=== PATIENT | male | born 1990 | race Caucasian/White ===

== ENCOUNTER 2019-03-06 15:08 | Inpatient (IN) | payer OTHER | END 2019-03-08 14:29 | disposition home or self-care (01) | LOC: J8W 03-07 04:17 → JER 15:08 → JERBED 18:35 ==

== ENCOUNTER 2019-09-04 10:58 | Emergency (ER) | payer OTHER ==
[2019-09-04 11:06] VITALS: BP 130/74; PULSE 115; TEMP 98.7; BMI 35.9
--- NOTE | 2019-09-04 11:38 | PDOC ---
History of Present Illness - General Chief Complaint: Cold Symptoms Stated Complaint: FLU LIKE SYMPTOMS/BODY ACHE Time Seen by Provider: 09/04/19 11:38 History Source: Patient - History of Present Illness Initial Comments: 09/04/19 13:53 Chief complaint: Fever Patient is 29-year-old male history of NIDDM, with 3 days of body ache, sore throat. Patient denies any chest pain or shortness of breath. Patient took ibuprofen this morning, possibly 1 [id number] tablet. Patient does not appear acutely ill GENERAL/CONSTITUTIONAL: + fever, weakness. dizziness HEAD, EYES, EARS, NOSE AND THROAT: No change in vision. No ear pain or discharge. No sore throat. CARDIOVASCULAR: No chest pain RESPIRATORY: No shortness of breath or cough GASTROINTESTINAL: No pain, nausea, vomiting, diarrhea or constipation GENITOURINARY: No dysuria MUSCULOSKELETAL: No neck or back pain SKIN: No rash NEUROLOGIC: No headache, vertigo, loss of consciousness, or loss of sensation. GENERAL: The patient is awake, alert, and fully oriented, in no acute distress. HEAD: Normal with no signs of trauma. EYES: Pupils equal, round and reactive to light, sclera anicteric, conjunctiva clear. ENT: pharynx: +erythema, no exudate, uvula midline NECK: supple CHEST: clear, nontender, rr ABD: soft, nontender BACK: no tenderness or signs of injury EXTREMITIES: Normal range of motion, no edema. NEUROLOGICAL: Normal speech, normal gait. SKIN: Warm, Dry Past History - Past Medical History Allergies/Adverse Reactions: Allergies Allergy/AdvReac Type Severity Reaction Status Date / Time No Known Allergies Allergy Verified 09/04/19 11:03 Home Medications: Ambulatory Orders Insulin Detemir [Levemir Flextouch] 20 unit SQ DAILY #1 insuln.pen 03/08/19 Insulin Lispro [Humalog Kwikpen U-100] See Protocol SQ TID #1 insuln.pen metFORMIN HCL [Glucophage -] 500 mg PO BID@0700,1630 #60 tablet 03/08/19 Amoxicillin 875 mg PO BID #20 tablet 09/04/19 COPD: No Diabetes: Yes - Immunization History Immunization Up to Date: Yes - Psycho Social/Smoking Cessation Hx Smoking History: Never smoked Have you smoked in the past 12 months: No Hx Alcohol Use: No Drug/Substance Use Hx: No *Physical Exam - Vital Signs Last Vital Signs Temp Pulse Resp BP Pulse Ox 98.7 F 115 H 18 130/74 97 09/04/19 11:04 09/04/19 11:04 09/04/19 11:04 09/04/19 11:04 09/04/19 11:04 Medical Decision Making - Medical Decision Making 09/04/19 13:54 29-year-old male with subjective fevers, body aches, sore throat. Patient is diabetic. Will give fingerstick since patient does not monitor his sugars and he was in the hospital in January with a sugar, first time of 700s. Patient does not look acutely ill. Patient will get flu swab, if negative will treat for strep. Sugar is in the 200s, flu is negative, will treat for strep, pharyngitis. Discussed issues, findings, results, applicable medications and treatments and follow-up. All these were understood and all questions were answered Discharge - Discharge Information Problems reviewed: Yes Clinical Impression/Diagnosis: Pharyngitis Qualifiers: Pharyngitis/tonsillitis etiology: unspecified etiology Qualified Code(s): J02.9 - Acute pharyngitis, unspecified Condition: Stable Disposition: HOME - Admission No - Additional Discharge Information Prescriptions: Amoxicillin 875 mg PO BID #20 tablet - Follow up/Referral - Patient Discharge Instructions Additional Instructions: Drink 2-3 L of water daily Take amoxicillin every 12 hours for 10 days do not stop it early even if you feel better. Monitor blood sugars and if they start getting much higher, make sure you discuss with your doctor or if you feel very sick return to the ER Take Tylenol 650 mg every 4 hours or Motrin 600 mg every 6 hours for fever and pain Return to the nearest ER if short of breath, unable to swallow or feeling sicker Followup with your doctor in one to 2 days Beber 2-3 L de agua diariamente [place] amoxicilina cada 12 horas theodore 10 huang, no lo suspenda temprano, incluso si se siente mejor. Controle los niveles de azcar en la francisco javier y si comienzan a aumentar mucho, asegrese de hablar con mejia mdico o si se siente muy enfermo, regrese a la radha de emergencias. [place] Tylenol 650 mg cada 4 horas o Motrin 600 mg cada 6 horas para la fiebre y el dolor. Regrese a la radha de emergencias ms cercana si tiene dificultad para respirar, no puede tragar o se siente ms enfermo Seguimiento con mejia mdico en zonia o dos huang. - Post Discharge Activity
[2019-09-04] MEDS ORDERED: IBUPROFEN 600 MG TABLET (FP) PO ONE (11:39)
[2019-09-04] MEDS ORDERED: ACETAMINOPHEN 325 MG TABLET (FP) PO ONE (12:17)
[2019-09-04] MEDS ORDERED: ACETAMINOPHEN 325 MG TABLET (FP) ONE (12:29)
== END 2019-09-04 14:03 | disposition home or self-care (01) ==
LOC: JERFT 10:58
DX: J02.9 Acute pharyngitis, unspecified (principal); E10.9 Type 1 diabetes mellitus without complications; Z79.4 Long term (current) use of insulin
CPT/HCPCS: 82962; 87804; 99283-25

== ENCOUNTER 2019-10-16 21:48 | Emergency (ER) | payer SELFPAY ==
--- NOTE | 2019-10-16 22:03 | PDOC ---
Rapid Medical Evaluation Chief Complaint: Blood Sugar Problem Time Seen by Provider: 10/16/19 22:03 Medical Evaluation: Allergies Allergy/AdvReac Type Severity Reaction Status Date / Time No Known Allergies Allergy Verified 10/16/19 22:01 Vital Signs Temp Pulse Resp BP Pulse Ox 98.5 F 112 H 18 154/99 99 10/16/19 21:57 10/16/19 21:57 10/16/19 21:57 10/16/19 21:57 10/16/19 21:57 10/16/19 22:11 29-year-old male with IDDM, ran out of insulin several months ago and taking Metformin only presenting with fever, cough, SOB, loss of sense of smell. States blood sugars have been in 500s. Pertinent physical exam findings: No resp distress, SpO2 100%, clear lungs No abd tenderness Dispo: To Main ED for tx of hyperglycemia COVID/flu testing Labs r/o DKA Fluids Discharge Disposition - Diagnosis Hyperglycemia - Referrals - Patient Instructions - Post Discharge Activity
[2019-10-16] MEDS ORDERED: SODIUM CHLORIDE 0.9% 500 ML INFUS.BAG IV ONE ×2 (22:05→23:09)
[2019-10-16 22:06] VITALS: BMI 34.8
--- NOTE | 2019-10-16 22:56 | PDOC ---
History of Present Illness - General Chief Complaint: Blood Sugar Problem Stated Complaint: BLOOD SUGAR PROBLEM/SOB Time Seen by Provider: 10/16/19 22:03 History Source: Patient - History of Present Illness Initial Comments: 10/16/19 22:57 Mr. Cano is a 29 y/o man w/hx IDDM p/w four days of polyuria, polydipsia, cough, malaise, anosmia, sob. He reports that three months ago he traveled to the [facility] where he was evaluated by a medical professional and told that he did not have diabetes. Since then he discontinued his insulin and metformin regimen and has not taken it since then. He reports noticing polyuria over the last several nights, and he became concerned today and decided to check his blood sugar which was measured in the 500s. He denies any confusion, abdominal pain, fatigue, nausea, vomiting, dysuria, hematuria. No sick contacts. Past History - Past Medical History Allergies/Adverse Reactions: Allergies Allergy/AdvReac Type Severity Reaction Status Date / Time No Known Allergies Allergy Verified 10/16/19 22:01 Home Medications: Ambulatory Orders Insulin Detemir [Levemir Flextouch] 20 unit SQ DAILY #1 insuln.pen 03/08/19 Insulin Lispro [Humalog Kwikpen U-100] See Protocol SQ TID #1 insuln.pen 03/08/19 metFORMIN HCL [Glucophage -] 500 mg PO BID@0700,1630 #60 tablet 03/08/19 Amoxicillin 875 mg PO BID #20 tablet 09/04/19 COPD: No Diabetes: Yes - Immunization History Immunization Up to Date: Yes - Psycho Social/Smoking Cessation Hx Smoking History: Never smoked Have you smoked in the past 12 months: No Hx Alcohol Use: No Drug/Substance Use Hx: No Review of Systems - Review of Systems Able to Perform ROS?: Yes Comments:: 10/16/19 23:15 GENERAL/CONSTITUTIONAL: No fever or chills. No weakness. HEAD, EYES, EARS, NOSE AND THROAT: Anosmia. No change in vision. No ear pain or discharge. No sore throat. CARDIOVASCULAR: SOB. No chest pain RESPIRATORY: No cough, wheezing, or hemoptysis. GASTROINTESTINAL: No nausea, vomiting, diarrhea or constipation. GENITOURINARY: Increased frequency, No dysuria, or change in urination. MUSCULOSKELETAL: No joint or muscle swelling or pain. No neck or back pain. SKIN: No rash NEUROLOGIC: No headache, vertigo, loss of consciousness, or change in strength/sensation. ENDOCRINE: Increased thirst. No abnormal weight change HEMATOLOGIC/LYMPHATIC: No anemia, easy bleeding, or history of blood clots. ALLERGIC/IMMUNOLOGIC: No hives or skin allergy. *Physical Exam - Vital Signs Last Vital Signs Temp Pulse Resp BP Pulse Ox 98.5 F 112 H 18 154/99 99 10/16/19 21:57 10/16/19 21:57 10/16/19 21:57 10/16/19 21:57 10/16/19 21:57 - Physical Exam 10/16/19 23:16 GENERAL: Awake, alert, and fully oriented, in no acute distress HEAD: No signs of trauma, normocephalic, atraumatic EYES: PERRLA, EOMI, sclera anicteric, conjunctiva clear ENT: Auricles normal inspection, hearing grossly normal, nares patent, oropharynx clear without exudates. Moist mucosa NECK: Normal ROM, supple, no lymphadenopathy, JVD, or masses LUNGS: No distress, speaks full sentences, clear to auscultation bilaterally HEART: Regular rate and rhythm, normal S1 and S2, no murmurs, rubs or gallops, peripheral pulses normal and equal bilaterally. ABDOMEN: Soft, nontender, normoactive bowel sounds. No guarding, no rebound. No masses EXTREMITIES : Normal inspection, Normal range of motion, no edema. No clubbing or cyanosis NEUROLOGICAL: Cranial nerves II through XII grossly intact. Normal speech, normal gait, no focal sensorimotor deficits SKIN: Warm, Dry, normal turgor, no rashes or lesions noted ED Treatment Course - LABORATORY CBC & Chemistry Diagram: 10/16/19 22:50 10/16/19 23:16 Medical Decision Making - Medical Decision Making 10/16/19 23:17 29M w/hx IDDM, not taking any DM medications at this time p/w hyperglycemia to 500s. Ddx most likely represents uncomplicated hyperglycemia. Cough, fatigue, anosmia may represent URI. DKA unlikely given lack of nausea, vomiting, abdominal pain. Plan: CBC CMP EKG CXR Beta hydroxybutyrate UA 1L NS BGM Dispo: Pending Discharge - Discharge Information Problems reviewed: Yes Clinical Impression/Diagnosis: Hyperglycemia Condition: Stable Disposition: HOME - Admission No - Follow up/Referral Referrals: [facility] [place] [facility] [place] [Provider Group] - Patient Discharge Instructions Patient Printed Discharge Instructions: DI for Hyperglycemia -- Adult Additional Instructions: Usted fue evaluado en la radha de urgencias por nivel de azucar jean pierre. Pan azucar mejoro despues de liquidos por el mathieu. Estamos dando referido para [facility] donde puedes conseguir un doctor de cabezera. Por favor edson cynthia lo mas pronto posible, en 2-3 mcmillan. Regresa a la radha de urgencias por nauseas y vomitos severos, confusion, debilidad, o fiebres altas. Print Language: CANADIAN - Post Discharge Activity
[2019-10-16 23:18] LABS: BASO % 0.9 % (0-2.0); EOS % 0.5 % (0-4.5); HEMATOCRIT 43.6 % (35.4-49); LYMPH % 29.4 % (8-40); MCH 31.5 pg (25.7-33.7); MCHC 36.7 g/dl (32.0-35.9); MEAN CELL VOLUME 85.8 fl (80-96); MONO % 6.4 % (3.8-10.2); NEUT % 62.8 % (42.8-82.8); PLATELET COUNT 245 K/MM3 (134-434); RBC 5.08 M/mm3 (4.00-5.60); RDW 12.5 % (11.9-15.9); WHITE BLOOD COUNT 5.6 K/mm3 (4.0-10.0)
[2019-10-16 23:39] LABS: VENOUS PC02 41.3 mmHg (38-52); VENOUS PH 7.38 (7.31-7.41)
[2019-10-16 23:40] LABS: VENOUS PO2 < 49 mmHg (28-48)
[2019-10-17 00:30] LABS: EPI CELLS 1 /uL (0-25.1); HYALINE CASTS 0 /uL (0-3.1); URINE APPEARANCE CLEAR; URINE BACTERIA 0 /uL (0-1359); URINE BILIRUBIN NEGATIVE (NEGATIVE); URINE COLOR YELLOW; URINE GLUCOSE (UA) 3+ (NEGATIVE); URINE KETONE TRACE (NEGATIVE); URINE LEUK ESTERASE NEGATIVE (NEGATIVE); URINE NITRITE NEGATIVE (NEGATIVE); URINE PROTEIN NEGATIVE (NEGATIVE); URINE RBC 57 /uL (0-23.9); URINE UROBILINOGEN 0.2 mg/dL (0.2-1.0); URINE WBC 1 /uL (0-25.8)
[2019-10-17] MEDS ORDERED: SODIUM CHLORIDE 1,000 ML IV STA (00:39)
[2019-10-17 00:53] LABS: ALBUMIN 3.5 g/dl (3.4-5.0); ALK PHOS 86 U/L (45-117); ANION GAP 11 MMOL/L (8-16); CHLORIDE 94 mmol/L (98-107); CO2 22 mmol/L (21-32); POTASSIUM 4.1 mmol/L (3.5-5.1); SODIUM 127 mmol/L (136-145)
[2019-10-17 00:58] LABS: GLUCOSE,RANDOM 492 mg/dL (74-106)
--- NOTE | 2019-10-17 01:48 | PDOC ---
Attending Attestation - Resident Resident Name: Jose Mays - ED Attending Attestation I have performed the following: I have examined & evaluated the patient, The case was reviewed & discussed with the resident, I agree w/resident's findings & plan, Exceptions are as noted - HPI HPI: 10/17/19 03:58 See resident HPI - Physicial Exam PE: 10/17/19 03:58 Agree with documented exam - Medical Decision Making 10/17/19 03:59 29M with IDDM with polyuria, polydipsia after dc'ing DM meds after being told he does not have DM anymore f/u labs, cxr, ekg, ivf, fsg re-eval Discharge - Discharge Information Problems reviewed: Yes Clinical Impression/Diagnosis: Hyperglycemia Condition: Stable Disposition: HOME - Follow up/Referral Referrals: [facility] [place] [facility] [place] [Provider Group] - Patient Discharge Instructions Patient Printed Discharge Instructions: DI for Hyperglycemia -- Adult Additional Instructions: Usted fue evaluado en la radha de urgencias por nivel de azucar jean pierre. Pan azucar mejoro despues de liquidos por el mathieu. Estamos dando referido para [facility] donde puedes conseguir un doctor de cabezera. Por favor edson cynthia lo mas pronto posible, en 2-3 mcmillan. Regresa a la radha de urgencias por nauseas y vomitos severos, confusion, debilidad, o fiebres altas. Print Language: BELGIAN - Post Discharge Activity
[2019-10-17] MEDS ORDERED: SODIUM CHLORIDE 0.9% 500 ML INFUS.BAG IV ONE (01:51)
[2019-10-17 02:53] VITALS: BP 138/71; PULSE 88; TEMP 98.1
--- NOTE | 2019-10-17 10:33 | EKG ---
Test Reason : Blood Pressure : / mmHG Vent. Rate : 104 BPM Atrial Rate : 104 BPM P-R Int : 178 ms QRS Dur : 086 ms QT Int : 312 ms P-R-T Axes : 046 089 011 degrees QTc Int : 410 ms SINUS TACHYCARDIA POSSIBLE LEFT ATRIAL ENLARGEMENT NO PREVIOUS ECGS AVAILABLE Confirmed by CESAR SALOMON MD ([id number]) on 10/17/2019 10:33:03 AM Referred By: Confirmed By:CESAR SALOMON MD
== END 2019-10-17 02:54 | disposition home or self-care (01) ==
LOC: JER 21:48
DX: E10.65 Type 1 diabetes mellitus with hyperglycemia (principal)
CPT/HCPCS: 36415; 71045-TC-FY; 80053; 81003; 82010; 82803; 82962; 85025; 93005; 93010; 99285-25; J7030

== ENCOUNTER 2024-03-19 18:53 | Emergency (ER) | payer OTHER ==
[2024-03-19 19:01] VITALS: BP 133/93; PULSE 92; RESP 18; TEMP 97.3; BMI 32.1
[2024-03-19] MEDS ORDERED: NAPROXEN 500 MG TABLET ONE (19:32)
[2024-03-19] MEDS: NAPROXEN 500 MG TABLET PO ONE (19:32)
== END 2024-03-19 19:41 | disposition home or self-care (01) ==
LOC: JERFT 18:53
DX: S46.011A Strain of muscle(s) and tendon(s) of the rotator cuff of right shoulder, initial encounter (principal); X50.1XXA Overexertion from prolonged static or awkward postures, initial encounter
CPT/HCPCS: 73030-TC-RT-FY; 99283-25

== ENCOUNTER 2024-03-28 16:19 | Emergency (ER) | payer OTHER ==
[2024-03-28 16:28] VITALS: BP 149/85; PULSE 78; RESP 18; TEMP 97.9; BMI 32.1
== END 2024-03-28 18:46 | disposition home or self-care (01) ==
LOC: JERFT 16:19 → JER 16:19 → JERFT 18:46
DX: R21 Rash and other nonspecific skin eruption (principal); L29.9 Pruritus, unspecified
CPT/HCPCS: 99283-25